=== PATIENT | male | born 1950 | race Caucasian/White ===

== ENCOUNTER 2016-03-23 10:44 | Day surgery (SDC) | payer BC, MEDICARE ==
[2016-03-23] MEDS ORDERED: MIDAZOLAM HCL 2MG/2ML VIAL IV ONE (14:00)
--- NOTE | 2016-03-24 15:51 | Operative Note ---
DATE OF SURGERY: 03/23/2016 REFERRING PROVIDER: Bernard Brunner MD PREOPERATIVE DIAGNOSIS: Colon cancer screening, average risk. POSTOPERATIVE DIAGNOSIS: Includes normal exam. OPERATION: SCREENING COLONOSCOPY. Preparation Quality: Good. Estimated Blood Loss: None. Samples Obtained: None. PROCEDURE: After informed consent was obtained, the patient was placed in the left lateral decubitus position in the endoscopy suite, sedated and monitored by the Department of Anesthesia. Digital rectal exam was unremarkable. A well-lubricated PCF-180 colonoscope was inserted into the rectum and advanced to the cecum. The ileocecal valve and appendiceal orifice, cecum, ascending colon, transverse colon, descending colon, sigmoid colon, and rectum were free of inflammatory changes, mass, lesions or polyps. J-turn views of the anorectum were unremarkable. Forward views of the rectum were unremarkable. The endoscope was straightened, the rectal ampulla deflated and the endoscope was removed. RECOMMENDATIONS: Patient should resume his medications and diet. I would recommend a repeat exam in 10 years, or sooner should symptoms warrant. As always, thank you for allowing me to participate in the health care of your patients. Oniel Nails DO CC: Bernard Brunner MD [facility]
== END 2016-03-23 14:03 | disposition home or self-care (01) ==
LOC: HOP 10:44
PROVIDERS: ATTEND Internal Medicine Gastroenterology
DX: Z12.11 Encounter for screening for malignant neoplasm of colon (principal); E78.00 Pure hypercholesterolemia, unspecified
CPT/HCPCS: 00810; G0121